=== PATIENT | male | born 1980 | race Caucasian/White ===

== ENCOUNTER 2018-01-04 16:12 | Emergency (ER) | payer SELFPAY ==
[~2018-01-04] VITALS: Ht 182.9 cm; Wt 105.0 kg
[2018-01-04 16:23] VITALS: BP 133/80; PULSE 60; RESP 17; TEMP 97.2; O2SAT 98
[2018-01-04] MEDS ORDERED: KETOROLAC TROMETHAMINE 60 MG/2 ML (IM) VIAL IM ONE (19:00)
--- NOTE | 2018-01-04 19:32 | RADRPT ---
EXAM DATE/TIME: 01/04/2018 19:03 [place] COMPARISON: No previous studies available for comparison. INDICATIONS : Pain. Twisted knee. MEDICAL HISTORY : None. SURGICAL HISTORY : Knee surgery. ENCOUNTER: Initial ACUITY: 1 day PAIN SCORE: 9/10 LOCATION: Right Knee. FINDINGS: Postoperative prior ACL repair. Bipartite patella present. No acute fracture or dislocation. Prematur e osteoarthritis present at the knee joint. CONCLUSION: 1. No acute fracture. Premature osteoarthritis at the knee joint. Previous surgical repair of ACL wit h screws present in the distal femur and proximal tibia. Marvin Grigsby MD on January 04, 2018 at 19:29 Board Certified Radiologist. This report was verified electronically.
--- NOTE | 2018-01-04 19:51 | PD ---
HPI Chief Complaint: Pain: Acute or Chronic Time Seen by Provider: 18:08 Travel History International Travel<30 days: No Contact w/Intl Traveler<30days: No Traveled to known affect area: No History of Present Illness HPI 37-year-old male with history of chronic right knee pain presents to the emergency room for evaluation of the same. States he twisted his knee yesterday and developed severe lateral knee pain worse with ambulation or range of motion. States he has had torn menisci and his ACL in the past and this feels the same. He had surgery 2 years ago in [place]. Patient is currently on vacation. He denies any distal paresthesias but states it feels like burning and tingling to the right lateral knee. Will pain is worsened with palpation. He took Aleve yesterday without relief in symptoms. He denies any chronic medical conditions or daily medications. [facility] Past Medical History Medical History: Denies Significant Hx ?: Not Past Surgical History Other Surgery: Yes (right knee pain, and 2 surgeries ) Social History Alcohol Use: No Tobacco Use: No Substance Use: No Allergies-Medications (Allergen,Severity, Reaction): Coded Allergies: No Known Allergies (Unverified , 01/04/18) Review of Systems Except as stated in HPI: all other systems reviewed are Neg Physical Exam Narrative GENERAL: Well-nourished, well-developed male no acute distress. Afebrile. Ambulatory with antalgic gait.. SKIN: Focused skin assessment warm/dry. No erythema or ecchymosis. HEAD: Normocephalic. EYES: No scleral icterus. No injection or drainage. NECK: Supple, trachea midline. No JVD or lymphadenopathy. CARDIOVASCULAR: Regular rate and rhythm without murmurs, gallops, or rubs. RESPIRATORY: Breath sounds equal bilaterally. No accessory muscle use. MUSCULOSKELETAL: No cyanosis. No obvious edema or effusion. Full range of motion of the right knee. Extreme tenderness to palpation of the right lateral knee. 2+ dorsalis pedis pulse. Data Data Last Documented VS Vital Signs Date Time Temp Pulse Resp B/P (MAP) Pulse Ox O2 Delivery O2 Flow Rate FiO2 01/04/18 16:23 97.2 60 17 133/80 (97) 98 Orders Orders Knee, Complete (4vws) (01/04/18 ) Ketorolac Inj (Toradol Inj) (01/04/18 19:00) [facility] Medical Decision Making Medical Screen Exam Complete: Yes Emergency Medical Condition: Yes Medical Record Reviewed: Yes Differential Diagnosis Fracture, strain, internal derangement, sprain Narrative Course 37-year-old male with history of chronic right knee pain presents to the emergency room for evaluation of the same. Patient had a twisting injury to his knee yesterday and has since had severe right lateral knee pain. States it feels like it did when he tore his meniscus and ACL. He is ambulatory with antalgic gait. Right lower extremity is neurovascularly intact with 2+ dorsalis pedis pulse. Strength intact. Full range of motion of the knee. There is no erythema, edema, ecchymosis, or effusion. Tenderness to palpation of the lateral aspect. X-ray is negative. Patient given Toradol for pain. Placed in [place] wrap and told to follow-up with his orthopedic surgeon or return to the emergency room for worsening symptoms. He has an appointment in the beginning of January with his surgeon in [place]. He understands and agrees to plan. Diagnosis Primary Impression: Internal derangement of right knee Referrals: Primary Care Physician Additional Instructions: Rest and drink plenty of fluids. [place] wrap as needed for pain. Take ibuprofen with food as directed, as needed for pain. Apply ice to the affected area for 20 minutes at a time, as needed for pain and swelling. Follow-up with your orthopedic surgeon for outpatient MRI if symptoms persist. Return to the emergency room for worsening symptoms. Med/Other Pt SpecificInfo: Prescription(s) given Disposition: 01 DISCHARGE HOME Condition: Stable Flor Mirza January 04, 2018 19:51
[2018-01-04] MEDS ORDERED: IBUP1TAB7 PO (20:27)
== END 2018-01-04 20:50 | disposition home or self-care (01) ==
LOC: NEPA 16:12
DX: M23.91 Unspecified internal derangement of right knee (principal); X50.1XXA Overexertion from prolonged static or awkward postures, initial encounter
CPT/HCPCS: 73564; 96372; 99283; J1885